=== PATIENT | male | born 1970 | race Caucasian/White ===

== ENCOUNTER 2021-09-11 19:11 | Emergency (ER) | payer BC, SELFPAY ==
--- NOTE | ~2021-09-11 | CT_ITS ---
EXAMINATION: CTA OF THE HEAD AND NECK WITH CONTRAST CT SCAN OF THE HEAD WITHOUT CONTRAST CLINICAL INFORMATION: Question infarct in left parietal region. New seizure. COMPARISON: None. TECHNIQUE: Noncontrast imaging of the head initially acquired. Test bolus sequences followed by intravenous administration 70 mL of Omnipaque 350. Helical imaging was performed in the axial plane from the mediastinum to the skull vertex. Delayed postcontrast imaging of the head was also performed. The data was processed at the diagnostic radiologic technologist's workstation for generation of MIP sequences. Three-dimensional volume rendered reformatted images were also generated at an offline 3-D workstation. Stenoses are assessed in accordance with NASCET criteria unless otherwise indicated. Limited study with motion artifacts. This CT examination was performed using dose optimization techniques as appropriate, variously including the following: *Automated exposure control *Adjustment of mA and/or kV according to patient size (this includes techniques or standardized protocols for targeted exams where dose is matched to indication/reason for exam; i.e. extremities or head) *Use of iterative reconstruction technique DLP: 2054, 729 mGy-cm. FINDINGS: CT head: There is no evidence of acute intracranial hemorrhage or territorial infarction. No abnormal mass effect or midline shift is seen. No abnormal enhancement identified. There is an area of low-density in left frontal lobe suspected to reflect chronic encephalomalacia. In the overlying left frontal calvarium, there is focal mild erosion of the inner cortical table. There is a small low-density extra-axial fluid collection overlying the site of encephalomalacia. There is mild ex vacuo dilatation of the left lateral ventricle from volume loss. The soft tissues are normal. The mastoid air cells and visualized portions of the paranasal sinuses are well aerated. CTA neck: The imaged aortic arch and origins of the great vessels are normal. The common carotid arteries are widely patent. The carotid bifurcations are patent with mild atheromatous disease and wall calcifications. The cervical internal carotid arteries are otherwise relatively normal in caliber. The vertebral arteries opacify normally and are of normal caliber. The soft tissues of the neck are unremarkable. [id number] lower cervical spondylosis noted. The imaged portions of the lungs are clear. CTA head: The intradural vertebral arteries and basilar artery are normal. The posterior cerebral arteries are widely patent. The internal carotid arteries are of normal caliber. The KARINA and MCA vascular complexes bilaterally are normal. The venous sinuses opacify normally. CT/CT head/brain wo con IMPRESSION: Limited examination with motion artifacts. No vascular occlusion or significant stenosis. Chronic encephalomalacia in the left frontal lobe. Small low-density extra-axial fluid collection overlying the site of encephalomalacia. Nonspecific erosive changes in the inner cortical table of the overlying left frontal bone. No abnormal enhancement. Imaging findings reported to Dr. Nunez at 9:26 PM on 09/12/2023.
--- NOTE | ~2021-09-11 | CT_ITS ---
EXAMINATION: CTA OF THE HEAD AND NECK WITH CONTRAST CT SCAN OF THE HEAD WITHOUT CONTRAST CLINICAL INFORMATION: Question infarct in left parietal region. New seizure. COMPARISON: None. TECHNIQUE: Noncontrast imaging of the head initially acquired. Test bolus sequences followed by intravenous administration 70 mL of Omnipaque 350. Helical imaging was performed in the axial plane from the mediastinum to the skull vertex. Delayed postcontrast imaging of the head was also performed. The data was processed at the electroencephalographic technologist's workstation for generation of MIP sequences. Three-dimensional volume rendered reformatted images were also generated at an offline 3-D workstation. Stenoses are assessed in accordance with NASCET criteria unless otherwise indicated. Limited study with motion artifacts. This CT examination was performed using dose optimization techniques as appropriate, variously including the following: *Automated exposure control *Adjustment of mA and/or kV according to patient size (this includes techniques or standardized protocols for targeted exams where dose is matched to indication/reason for exam; i.e. extremities or head) *Use of iterative reconstruction technique DLP: 2054, 729 mGy-cm. FINDINGS: CT head: There is no evidence of acute intracranial hemorrhage or territorial infarction. No abnormal mass effect or midline shift is seen. No abnormal enhancement identified. There is an area of low-density in left frontal lobe suspected to reflect chronic encephalomalacia. In the overlying left frontal calvarium, there is focal mild erosion of the inner cortical table. There is a small low-density extra-axial fluid collection overlying the site of encephalomalacia. There is mild ex vacuo dilatation of the left lateral ventricle from volume loss. The soft tissues are normal. The mastoid air cells and visualized portions of the paranasal sinuses are well aerated. CTA neck: The imaged aortic arch and origins of the great vessels are normal. The common carotid arteries are widely patent. The carotid bifurcations are patent with mild atheromatous disease and wall calcifications. The cervical internal carotid arteries are otherwise relatively normal in caliber. The vertebral arteries opacify normally and are of normal caliber. The soft tissues of the neck are unremarkable. [id number] lower cervical spondylosis noted. The imaged portions of the lungs are clear. CTA head: The intradural vertebral arteries and basilar artery are normal. The posterior cerebral arteries are widely patent. The internal carotid arteries are of normal caliber. The KARINA and MCA vascular complexes bilaterally are normal. The venous sinuses opacify normally. CT/CT angio head neck IMPRESSION: Limited examination with motion artifacts. No vascular occlusion or significant stenosis. Chronic encephalomalacia in the left frontal lobe. Small low-density extra-axial fluid collection overlying the site of encephalomalacia. Nonspecific erosive changes in the inner cortical table of the overlying left frontal bone. No abnormal enhancement. Imaging findings reported to Dr. Nunez at 9:26 PM on 09/12/2023.
[2021-09-11 19:22] VITALS: BP 107/51; BP 144/80; PULSE 119; PULSE 92; RESP 15; TEMP 36.5; O2SAT 93; O2SAT 97; BMI 33.0
--- NOTE | 2021-09-11 19:29 | PC.NURSE ---
Pt O2 sat 89-92 on RA, Pt placed on 2 L, O2 sat > to 95%.
--- NOTE | 2021-09-11 19:46 | ED_ITS ---
HPI - Seizure General Chief Complaint: Seizure Stated Complaint: ?Seizure Time Seen by Provider: 09/11/21 19:46 Source: patient, family and EMS Mode of arrival: EMS Limitations: no limitations History of Present Illness HPI Narrative: Patient with history of hypertension high cholesterol no history of seizure disorder or head injury was at baseball game watching the game had 2 episode of seizure witnessed by the friend each lasted less than a minute patient vomited after that no head injury patient was slightly confused after the seizure. No family history of seizures no history of tramadol Wellbutrin intake ,no use of cocaine. No family history of seizures Patient does have history of hypokalemia on Klor-Con tablets Related Data Previous Rx's Medication Instructions Recorded levetiracetam 500 mg tablet 500 mg PO BID #60 tabs 09/11/21 (Keppra) potassium chloride 10 mEq 20 meq PO BID #60 tabs 09/12/21 tablet,extended release (Klor-Con) Allergies Allergy/AdvReac Type Severity Reaction Status Date / Time No Known Allergies Allergy Verified 09/11/21 19:57 Review of Systems Review of Systems: Yes all other systems are reviewed and are negative [facility] Social History Social History Advance Directives: No Advance Directives Information Provided: No Physical Exam Vital Signs: Vital Signs: Last Vital Signs Temp 97.0 F 09/11/21 22:29 Pulse 87 09/12/21 00:26 Resp 15 09/12/21 00:26 BP 116/75 09/12/21 00:26 Pulse Ox 96 09/12/21 00:26 O2 Del Method 09/12/21 00:26 BMI result Body Mass Index 33.0 Appearance: Alert. Oriented X3. No acute distress. Eyes: PERRLA, No Nystagmus HEENT: Pharynx normal. Oral Mucosa moist no tongue bite atraumatic normocephalic Neck: Normal inspection. Neck supple. CVS: Normal heart rate and rhythm. Pulses normal. Respiratory: No respiratory distress. Equal air entry bilateral, no wheezing/rales/rhonchi Abdomen: Soft and nontender. Bowel sounds are present, no mass palpable, no CVA tenderness Skin: Skin warm and dry. Normal skin color. Normal skin turgor. Extremities: No lower extremity edema. No calf tenderness Neuro: Oriented X 3. No motor deficit. No sensory deficit.No cerebellar signs , cranial nerves II-XII intact MDM - Seizure MDM Narrative Medical decision making narrative: 2214 Patient new onset of seizures witnessed by his friend CTA head showed chronic encephalomalacia of the left frontal lobe patient denies any history of significant concussion or head injury in the past likely the source of epilepsy discharge patient home on [facility] advised to follow up with neurologist Lab workup showed creatinine of 1.64 seems to be chronic with potassium of 2.8 will give put patient on IV potassium and p.o. extra dose EKG without any hypokalemic changes Lab Data Attestation: I reviewed the patient's lab results. Result diagrams: 09/11/21 20:44 09/11/21 20:44 Labs: Lab Results 09/11/21 09/11/21 09/11/21 Range/Units 20:44 20:44 20:44 WBC 14.0 H (4.8-10.8) X10*3/uL RBC 5.05 (4.60-5.80) X10*6/uL Hgb 14.2 (14.0-18.0) g/dl Hct 41.4 L (42.0-52.0) % MCV 82.0 (80.0-98.0) fL MCH 28.1 (27.0-33.0) pg MCHC 34.3 (31.0-36.0) g/dl RDW 14.4 (11.0-16.0) % Plt Count 242 (160-400) X10*3/uL MPV 9.5 (9.4-12.4) fL Immature Gran % (Auto) 0.9 H (0.0-0.4) % Neut % (Auto) 80.8 H (45-73) % Lymph % (Auto) 10.8 L (20-40) % [place] % (Auto) 5.9 (2-11) % Eos % (Auto) 1.4 (0-4) % Baso % (Auto) 0.2 (0-2) % Lymph # (Auto) 1.5 (1.2-4.9) X10*3/uL [place] # (Auto) 0.8 (0.1-1.2) X10*3/uL Eos # (Auto) 0.2 (0.0-0.4) X10*3/uL Baso # (Auto) 0.0 (0.0-0.2) X10*3/uL Abs Immat Gran (auto) 0.13 H (0.00-0.03) X10*3/uL Absolute Neuts (auto) 11.3 H (2.0-8.3) x10*3/uL Absolute Nucleated RBC 0.000 (0.0-0.012) X10*3/uL Nucleated RBC % (auto) 0.0 (0.0-0.2) /100WBC Sodium 142 (135-145) mmol/L Potassium 2.8 L (3.3-5.1) mmol/L Chloride 105 (96-108) mmol/L Carbon Dioxide 28 (22-29) mmol/L Anion Gap 12 (12-20) BUN 26 H (9-16) mg/dL Creatinine 1.64 H (0.5-1.4) mg/dL Estim Creat Clear Calc 64.4 Estimated GFR 45 Random Glucose 87 (60-115) mg/dL Calcium 9.1 (8.4-10.2) mg/dL Total Bilirubin 0.5 (0.0-1.0) mg/dL AST 33 (5-37) U/L ALT 39 (0-40) U/L Alkaline Phosphatase 89 (39-117) U/L Total Protein 6.9 (6.5-8.0) g/dL Albumin 3.9 (3.5-5.0) g/dL Urine Opiates Screen (Not Detect) Urine Fentanyl Screen (Not Detect) Ur Barbiturates Screen (Not Detect) Ur Phencyclidine Scrn (Not Detect) Ur Amphetamines Screen (Not Detect) U Benzodiazepines Scrn (Not Detect) Urine Cocaine Screen (Not Detect) U Marijuana (THC) Screen (Not Detect) COVID-19 ([place]) Negative (Negative) COVID-19 Clin Com See Note 09/11/21 Range/Units 21:15 WBC (4.8-10.8) X10*3/uL RBC (4.60-5.80) X10*6/uL Hgb (14.0-18.0) g/dl Hct (42.0-52.0) % MCV (80.0-98.0) fL MCH (27.0-33.0) pg MCHC (31.0-36.0) g/dl RDW (11.0-16.0) % Plt Count (160-400) X10*3/uL MPV (9.4-12.4) fL Immature Gran % (Auto) (0.0-0.4) % Neut % (Auto) (45-73) % Lymph % (Auto) (20-40) % [place] % (Auto) (2-11) % Eos % (Auto) (0-4) % Baso % (Auto) (0-2) % Lymph # (Auto) (1.2-4.9) X10*3/uL [place] # (Auto) (0.1-1.2) X10*3/uL Eos # (Auto) (0.0-0.4) X10*3/uL Baso # (Auto) (0.0-0.2) X10*3/uL Abs Immat Gran (auto) (0.00-0.03) X10*3/uL Absolute Neuts (auto) (2.0-8.3) x10*3/uL Absolute Nucleated RBC (0.0-0.012) X10*3/uL Nucleated RBC % (auto) (0.0-0.2) /100WBC Sodium (135-145) mmol/L Potassium (3.3-5.1) mmol/L Chloride (96-108) mmol/L Carbon Dioxide (22-29) mmol/L Anion Gap (12-20) BUN (9-16) mg/dL Creatinine (0.5-1.4) mg/dL Estim Creat Clear Calc Estimated GFR Random Glucose (60-115) mg/dL Calcium (8.4-10.2) mg/dL Total Bilirubin (0.0-1.0) mg/dL AST (5-37) U/L ALT (0-40) U/L Alkaline Phosphatase (39-117) U/L Total Protein (6.5-8.0) g/dL Albumin (3.5-5.0) g/dL Urine Opiates Screen Not Detected (Not Detect) Urine Fentanyl Screen Not Detected (Not Detect) Ur Barbiturates Screen Not Detected (Not Detect) Ur Phencyclidine Scrn Not Detected (Not Detect) Ur Amphetamines Screen Not Detected (Not Detect) U Benzodiazepines Scrn Not Detected (Not Detect) Urine Cocaine Screen Not Detected (Not Detect) U Marijuana (THC) Screen Not Detected (Not Detect) COVID-19 ([place]) (Negative) COVID-19 Clin Com ECG Data Attestation: I personally reviewed and interpreted this ECG as follows: Interpretation: Normal sinus rhythm heart rate 84 beats per minute normal tone normal axis no acute ST changes impression normal EKG Discharge Plan Discharge Clinical Impression: New onset seizure, Hypokalemia, CKD (chronic kidney disease) Patient Disposition: Home, Self-Care Instructions: Chronic Kidney Disease (ED), Potassium Content of Foods List (ED), Hypokalemia (ED), New-Onset Seizure in Adults (ED) Additional Instructions: Likely you have epilepsy Do not drive until cleared by neurologist Do not put herself in danger is duration alone Medication for seizures as prescribed Report to the ER if recurrence of the seizures Increase the dose of Klor-Con to 2 capsules in the morning and 2 in the evening See your PCP and have a recheck potassium level within 4-5 days Prescriptions: New levetiracetam [Keppra] 500 mg tablet 500 mg PO BID Qty: 60 3RF potassium chloride [Klor-Con 10] 10 mEq tablet extended release 20 meq PO BID Qty: 60 0RF Referrals: Pete Daily MD [Physician] - 1 week Interventions: ED Discharge Assessment Last Done: 09/12/21 00:27 Discharge Date/Time: 09/12/21 00:27
[2021-09-11 20:50] LABS: MANUAL DIFF FLAG NO
[2021-09-11] MEDS: iohexoL 350 MG/ML 100 ML INFUS..BTL IV (20:50)
[2021-09-11 20:52] LABS: Basophils Percent Auto 0.2 % (0-2); Eosinophils Absolute Auto 0.2 X10*3/uL (0.0-0.4); Eosinophils Percent Auto 1.4 % (0-4); Hematocrit 41.4 % (42.0-52.0); Hemoglobin 14.2 g/dl (14.0-18.0); Imm Gran Abs Auto 0.13 X10*3/uL (0.00-0.03); Imm Gran Pct Auto 0.9 % (0.0-0.4); Lymphocytes Absolute Auto 1.5 X10*3/uL (1.2-4.9); Lymphocytes Percent Auto 10.8 % (20-40); Mean Corpuscular HGB Conc 34.3 g/dl (31.0-36.0); Mean Corpuscular Hemoglobin 28.1 pg (27.0-33.0); Mean Platelet Volume 9.5 fL (9.4-12.4); Monocytes Absolute Auto 0.8 X10*3/uL (0.1-1.2); Monocytes Percent Auto 5.9 % (2-11); Neutrophils Absolute Auto 11.3 x10*3/uL (2.0-8.3); Neutrophils Percent Auto 80.8 % (45-73); Platelet Count 242 X10*3/uL (160-400); Red Blood Count 5.05 X10*6/uL (4.60-5.80); Red Cell Distribution Width 14.4 % (11.0-16.0)
[2021-09-11 21:10] LABS: Alanine Aminotransferase 39 U/L (0-40); Albumin Level 3.9 g/dL (3.5-5.0); Alkaline Phosphatase 89 U/L (39-117); Anion Gap 12 (12-20); Aspartate Amino Transferase 33 U/L (5-37); Bilirubin Total 0.5 mg/dL (0.0-1.0); Blood Urea Nitrogen 26 mg/dL (9-16); COVID-19 Test Negative (Negative); Calcium 9.1 mg/dL (8.4-10.2); Carbon Dioxide 28 mmol/L (22-29); Chloride 105 mmol/L (96-108); Creatinine Clr Calc Pharmacy 64.4; Estimated Glomerular Filt Rate 45; Glucose Random 87 mg/dL (60-115); IDNOW Serial# 16C4AD1C; Potassium 2.8 mmol/L (3.3-5.1); Sodium 142 mmol/L (135-145); Total Protein 6.9 g/dL (6.5-8.0)
[2021-09-11 21:18] VITALS: BP 112/86; PULSE 94; RESP 16; TEMP 36.8; O2SAT 97
[2021-09-11] MEDS: levETIRAcetam in NaCl (iso-os) 1,000 MG/100 ML PIGGYBACK 400 MG IV (21:31)
[2021-09-11 21:34] LABS: Amphetamine Screen Urine Not Detected (Not Detect); Barbiturates, Urine Not Detected (Not Detect); Benzodiazepines Screen Urine Not Detected (Not Detect); Cannabinoid Screen Urine Not Detected (Not Detect); Cocaine Screen Urine Not Detected (Not Detect); Fentanyl, urine Not Detected (Not Detect); Opiate Screen Urine Not Detected (Not Detect); Phencyclidine Screen Urine Not Detected (Not Detect)
[2021-09-11 22:29] VITALS: BP 102/54; PULSE 82; RESP 16; TEMP 36.1
[2021-09-11] MEDS: Potassium Chloride/H20 10 MEQ/100 ML PIGGYBACK 100 MEQ IV (22:50)
[2021-09-11] MEDS: Potassium Bicarbonate/Cit AC 25 MEQ TABLET.EFF PO (22:51)
--- NOTE | 2021-09-11 22:58 | ECG_ITS ---
Test Reason : SEIZURE Blood Pressure : / mmHG Vent. Rate : 084 BPM Atrial Rate : 084 BPM P-R Int : 166 ms QRS Dur : 096 ms QT Int : 400 ms P-R-T Axes : 037 028 027 degrees QTc Int : 472 ms Normal sinus rhythm Normal ECG No previous ECGs available Referred By: Malcom West Electronically Signed By:Camron Del Valle
[2021-09-12 00:26] VITALS: BP 116/75; PULSE 87; RESP 15; O2SAT 96
== END 2021-09-12 00:27 | disposition home or self-care (01) ==
PROVIDERS: Emergency Provider Internal Medicine
DX: R56.9 Unspecified convulsions (principal); E87.6 Hypokalemia; I12.9 Hypertensive chronic kidney disease with stage 1 through stage 4 chronic kidney disease, or unspecified chronic kidney disease; N18.9 Chronic kidney disease, unspecified; Z20.822 Contact with and (suspected) exposure to COVID-19; E78.5 Hyperlipidemia, unspecified; Z79.899 Other long term (current) drug therapy
CPT/HCPCS: 70450; 70496; 70498; 80053; 80307; 85025; 87635; 93005; 96365; 96375; 99284; J1953; Q9967

== ENCOUNTER 2021-11-27 09:47 | Outpatient (REF) | payer BC, SELFPAY ==
--- NOTE | ~2021-11-27 | MR_ITS ---
EXAMINATION: MR BRAIN WITHOUT CONTRAST CLINICAL INFORMATION: 51-year-old with seizure disorder. COMPARISON: None TECHNIQUE: Multiplanar multisequence MR imaging of the brain was done without IV contrast. (Patient refused IV contrast.) FINDINGS: Brain Volume: Regional cerebral volume loss involving the left frontal lobe as described below. Otherwise no significant global cerebral volume loss within the limitations of a qualitative assessment. Structural: No malformations. Brain and Meninges: DWI sequence demonstrates no restricted diffusion to suggest acute or subacute cerebral ischemia. Note is made of a 2.8 x 3.5 x 3.7 cm zone of predominantly CSF signal intensity possibly containing some thin septations located along the anterior margin of the left sylvian fissure which extends cephalad within the left frontal lobe parenchyma to the left cerebral convexity and appears to be associated with thinning and partial discontinuity of the calvarium overlying this region suggesting a large area of porencephaly. There is a rim of parenchymal T2 hyperintensity adjacent to this suggesting adjacent parenchymal gliosis related to cystic encephalomalacia. There is associated mild ex vacuo dilatation of the left frontal horn of the lateral ventricle. Suggest correlation for any history of remote trauma or instrumentation to explain this. There is no associated hemosiderin staining or abnormal mineral deposition. Small patchy and punctate foci of FLAIR/T2 signal hyperintensity are also seen within the frontal white matter bilaterally and within the parietal white matter which are nonspecific findings but could reflect chronic ischemic microangiopathy. The mesial temporal lobe structures are bilaterally symmetric and are normal in morphology and signal intensity. Ventricles and Subarachnoid Spaces: The ventricular system demonstrates mild ex vacuo dilatation of the left lateral ventricle related to asymmetric left hemispheric volume loss but otherwise demonstrates a normal appearance without hydrocephalus. Orbital Structures: The visualized orbital structures are grossly unremarkable within the limitations of the study. Vascular: Signal voids are noted in the visualized major intracranial vessels. Osseous Structures, Sinuses/Mastoids, Extracranial Soft Tissues: Left lateral frontal calvarial thinning and/or discontinuity as described above. Correlate with patient's clinical history for any remote trauma or surgery. Otherwise marrow signal intensity appears within normal limits. Minor mucosal thickening in the floor of the left maxillary sinus with a small retention cyst suspected. MR/MR head/brain wo con IMPRESSION: 1. 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 Focal thinning and/or discontinuity of the adjacent left lateral frontal bone is noted. Correlate for any history of trauma or surgery. 2. White matter T2 hyperintensities in the subcortical and deeper white matter of both cerebral hemispheres are noted. These could reflect chronic ischemic microangiopathy or other forms of vasculopathy but are not typical for demyelination. 3. No evidence for hemorrhage, hemosiderin staining or abnormal mineral deposition and bilaterally symmetric, normal-appearing mesial temporal lobe structures.
== END 2021-11-27 09:48 | disposition home or self-care (01) ==
LOC: HO.MRI 09:47
PROVIDERS: Visit Provider Psychiatry & Neurology Neurology
DX: G40.909 Epilepsy, unspecified, not intractable, without status epilepticus (principal)
CPT/HCPCS: 70551

== ENCOUNTER → 2022-05-31 09:42 | Outpatient (BNVA) | payer OTHER, SELFPAY | PROVIDERS: Visit Provider Physician Assistant Medical | DX: M70.52 Other bursitis of knee, left knee (principal); L03.116 Cellulitis of left lower limb | CPT/HCPCS: 73564; 99203 ==

== ENCOUNTER → 2022-06-02 12:46 | Outpatient (BNVA) | payer OTHER, SELFPAY | PROVIDERS: Visit Provider Physician Assistant Medical | DX: M70.42 Prepatellar bursitis, left knee (principal); L03.116 Cellulitis of left lower limb | CPT/HCPCS: 99213 ==

== ENCOUNTER → 2022-06-08 12:24 | Outpatient (BNVA) | payer OTHER, SELFPAY | PROVIDERS: Visit Provider Physician Assistant Medical | DX: M70.52 Other bursitis of knee, left knee (principal); L03.116 Cellulitis of left lower limb | CPT/HCPCS: 99213 ==

== ENCOUNTER → 2022-06-15 12:56 | Outpatient (BNVA) | payer OTHER, SELFPAY | PROVIDERS: Visit Provider Physician Assistant Medical | DX: M70.52 Other bursitis of knee, left knee (principal); L03.116 Cellulitis of left lower limb | CPT/HCPCS: 99213 ==

== ENCOUNTER → 2022-06-28 12:49 | Outpatient (BNVA) | payer OTHER, SELFPAY | PROVIDERS: Visit Provider Physician Assistant Medical | DX: M70.42 Prepatellar bursitis, left knee (principal) | CPT/HCPCS: 99213 ==

== ENCOUNTER → 2022-07-19 12:55 | Outpatient (BNVA) | payer OTHER, SELFPAY | PROVIDERS: Visit Provider Physician Assistant Medical | DX: M70.42 Prepatellar bursitis, left knee (principal) | CPT/HCPCS: 99213 ==

== ENCOUNTER → 2022-08-03 10:43 | Outpatient (BNVA) | payer OTHER, SELFPAY | PROVIDERS: Visit Provider Physician Assistant Medical | DX: M70.42 Prepatellar bursitis, left knee (principal) | CPT/HCPCS: 99213 ==